=== PATIENT | male | born 1965 | race Two or more races ===

== ENCOUNTER → 2018-10-04 | Day surgery (SDC) | payer OTHER ==
[~2018-10-04] MED LIST: BUPIVACAINE HCL 0 ML ONE; LIDOCAINE 1% (LOCAL ANESTH.) PF 5ml SDV ONE; LIDOCAINE 1% HCL (LOCAL ANESTH.) INJ 20ML MDV ONE; SUCCINYLCHOLINE CHLORIDE 20 MG/ML 10ML VIAL IV ONE
[2018-10-04 06:15] VITALS: BP 118/72
== END | disposition home or self-care (01) ==
LOC: SUR 06:20
DX: Z01.818 Encounter for other preprocedural examination (principal); K43.2 Incisional hernia without obstruction or gangrene; E11.9 Type 2 diabetes mellitus without complications; I10 Essential (primary) hypertension; E78.5 Hyperlipidemia, unspecified
CPT/HCPCS: 71045; 82962; J0330; J2001; J3490

== ENCOUNTER 2018-11-22 06:11 | Inpatient (IN) | payer OTHER ==
[~2018-11-22] VITALS: Ht 177.8 cm; Wt 112.9 kg
[2018-11-22] MEDS ORDERED: HEPARIN SODIUM (PORCINE) 5000 UNITS/ML 1ML VIAL ONE (07:08)
[2018-11-22] MEDS ORDERED: ceFAZolin 1GM/50ML 100 ML IV ONE (07:10)
[2018-11-22] MEDS ORDERED: LIDOCAINE 1% HCL (LOCAL ANESTH.) INJ 20ML MDV ONE (07:12)
[2018-11-22] MEDS ORDERED: BUPIVACAINE HCL 50 ML ONE (07:12)
[2018-11-22] MEDS ORDERED: SUCCINYLCHOLINE CHLORIDE 20 MG/ML 10ML VIAL IV ONE (07:19)
[2018-11-22] MEDS ORDERED: MIDAZOLAM HCL 1MG/1ML-2 ML VIAL ONE (07:57)
[2018-11-22] MEDS ORDERED: LIDOCAINE 1% (LOCAL ANESTH.) PF 5ml SDV ONE (07:58)
[2018-11-22] MEDS ORDERED: METOCLOPRAMIDE HCL 5MG/ml INJ 2ml VIAL ONE (07:58)
[2018-11-22] MEDS ORDERED: ETOMIDATE (2MG/ML) 20ML VIAL IV ONE (07:59)
[2018-11-22] MEDS ORDERED: ROCURONIUM 10MG/ML 10ML VIAL IV ONE (07:59)
[2018-11-22] MEDS ORDERED: fentaNYL CITRATE 100 MCG/2 ML VL ONE (08:11)
[2018-11-22] MEDS ORDERED: ACCU-CHEK COMFORT CURVE STRIP VI ONE (08:30)
[2018-11-22] MEDS ORDERED: HYDROmorphone HCL 2 MG/ML VL IV PRN ×2 (08:30)
[2018-11-22] MEDS ORDERED: ONDANSETRON HCL 4 MG/2 ML VIAL IV PRN ×2 (08:30→11:00)
[2018-11-22] MEDS ORDERED: NALOXONE HCL 0.4 MG/ML VIAL IV PRN (08:30)
[2018-11-22] MEDS ORDERED: MEPERIDINE HCL (50 MG/ML) 1 ML VIAL ONE (08:35)
[2018-11-22] MEDS ORDERED: hydrALAZINE HCL 20 MG/ML VL ONE (08:44)
[2018-11-22] MEDS ORDERED: ESMOLOL HCL 10 ML IV ONE (09:41)
[2018-11-22] MEDS ORDERED: NEOSTIGMINE 1 MG/ML INJ (10mg/10ML VIAL) ONE (10:49)
[2018-11-22] MEDS ORDERED: GLYCOPYRROLATE 0.2 MG/ML 1ML VIAL ONE (10:49)
[2018-11-22] MEDS ORDERED: OXYCODONE W/ ACETAMINOPHEN 5/325MG TABLET PO PRN ×2 (11:00)
[2018-11-22] MEDS ORDERED: DEXTROSE (50%) 50ML SYRG IV PRN (11:00)
[2018-11-22] MEDS ORDERED: HYDROmorphone HCL 2 MG/ML VL ONE (11:24)
--- NOTE | 2018-11-22 11:36 | NUR ---
RECEIVED REPORT FROM SORAYA SANTOS OF PACU
--- NOTE | 2018-11-22 11:45 | NUR ---
MS admit from [facility] KRISTOPHER COURTNEY admitted to [facility] after SBAR received. Patient oriented to Hamida Kwon, primary RN, unit, room, bed, and unit policies regarding patient care and visiting hours. Patient weighed by bedscale and encouraged to call if they need something. All questions and concerns addressed, patient verbalized understanding. Note: RECEIVED PT VIA BED, PT IS AWAKE AND ALERT, NOTED POST OP DRESSING ON ABDOMEN CLEAN DRY AND INTACT, WITH ALE DRAIN DRAINING SANGUINEOUS FLUID, WILL CONTINUE TO MONITOR.
[2018-11-22 12:00] VITALS: BP 138/71
[2018-11-22] MEDS: InsuLIN REG 1unit/0.01ml Soln (100units/ml) SC SCH ×2 (12:26→17:12)
[2018-11-22] MEDS: ACCU-CHEK COMFORT CURVE STRIP VI SCH ×3 (12:26→21:19)
[2018-11-22] MEDS ORDERED: ATOR20TA PO (15:20)
[2018-11-22] MEDS ORDERED: METF-370 PO (15:20)
[2018-11-22] MEDS: MORPHINE SULF INJ 2 MG/ML SYRINGE 1ML IV PRN (16:56)
[2018-11-22 17:09] VITALS: BP 137/85
[2018-11-22] MEDS: SODIUM CHLORIDE 0.9% 1,000 ML IV SCH (17:53)
[2018-11-22] MEDS: metFORMIN HYDROCHLORIDE 500 MG TAB PO SCH (17:54)
--- NOTE | 2018-11-22 18:05 | NUR ---
ALE DRAIN TOTAL OUTPUT 70 ML SANGUINEOUS FLUID.
--- NOTE | 2018-11-22 18:09 | NUR ---
PT IS UP ON CHAIR,TOLERATED IT WELL.
--- NOTE | 2018-11-22 19:45 | NUR ---
Opening Shift Note Assumed care of patient, awake and alert. No S/S of distress/SOB or pain. Bed in lowest locked position, side rails up x2, call light within reach, guards at bedside. Dressing noted to medial abdomen, minimal drainage noted and circled. ALE drain noted to bulb suction with minimal sanguinous dressing inside. Incentive spirometer at bedside, instructed patient on use, patient verbalized understanding. Instructed on POC and to call for assist PRN, will continue to monitor for changes Q1hr and PRN.
[2018-11-22 22:00] VITALS: BP 135/79
[2018-11-22] MEDS ORDERED: InsuLIN REG 1unit/0.01ml Soln (100units/ml) SC SCH (22:00)
[2018-11-22] MEDS ORDERED: ATORVASTATIN 20 MG TAB PO SCH (22:00)
[2018-11-23] MEDS: SODIUM CHLORIDE 0.9% 1,000 ML IV SCH (00:20)
[2018-11-23] MEDS: MORPHINE SULF INJ 2 MG/ML SYRINGE 1ML IV PRN (01:31)
[2018-11-23 05:00] VITALS: BP 146/84
[2018-11-23 05:35] LABS: Basophils # (auto) 0 uL; Basophils % (auto) 0.5 % (0.0-2.0); Eosinophils # (auto) 0 uL; Eosinophils % (auto) 0.1 % (0.0-7.0); Hematocrit 47.9 % (41.0-53.0); Lymphocytes # (auto) 1.8 uL; Lymphocytes % (auto) 20.2 % (10.0-50.0); Mean Corpuscular Hemoglobin 33.2 pg (28.0-32.0); Mean Corpuscular Hgb Conc. 35.4 g/dL (32.0-36.0); Mean Corpuscular Volume 93.6 fL (80.0-100.0); Monocytes # (auto) 0.8 uL; Monocytes % (auto) 8.8 % (0.0-12.0); Neutrophils # (auto) 6.2 uL; Neutrophils % (auto) 70.4 % (37.0-80.0); Nucleated Red Blood Cells % 0.1 %; Platelet Count (auto) 177 10^3/uL (140-450); Red Blood Cells 5.12 10^6/uL (4.5-5.90); Red Cell Distribution Width 13.3 % (11.8-14.3); White Blood Cell 8.8 10^3/uL (4.4-10.8)
[2018-11-23 06:01] LABS: BUN/Creatinine Ratio 12.8; Calcium 8.5 mg/dL (8.5-10.1)
[2018-11-23] MEDS: ACCU-CHEK COMFORT CURVE STRIP VI SCH ×2 (06:56→11:58)
[2018-11-23] MEDS: InsuLIN REG 1unit/0.01ml Soln (100units/ml) SC SCH ×2 (06:56→11:58)
--- NOTE | 2018-11-23 07:15 | NUR ---
Closing Note Patient lying in bed, awake and alert. No s/s of distress. 25 ml of sanguinous drainage removed from ALE drain, replaced to bulb suction. Bed in lowest locked position, side rails up x2, call light within reach, guards at bedside. Care endorsed to dayshift RN.
--- NOTE | 2018-11-23 07:45 | NUR ---
Opening Shift Note Assumed care of patient, awake and alert. No S/S of distress/SOB or pain. Instructed on POC and to call for assist PRN, will continue to monitor for changes Q1hr and PRN.
[2018-11-23 08:00] VITALS: BP 132/78
[2018-11-23 09:00] VITALS: BP 130/68
[2018-11-23] MEDS ORDERED: LISINOPRIL 10 MG TAB PO SCH (10:00)
[2018-11-23] MEDS ORDERED: ENOXAPARIN SOD 40 MG/0.4 ML SYRINGE SC SCH (10:00)
[2018-11-23] MEDS: metFORMIN HYDROCHLORIDE 500 MG TAB PO SCH (10:03)
[2018-11-23 11:35] VITALS: BP 130/68
[2018-11-23 12:45] VITALS: BP 131/87
--- NOTE | 2018-11-23 13:20 | NUR ---
Discharge instructions given as ordered. Paperwork given to guards. All questions and concerns addressed. Patient verbalized understanding. Medication reconciliation form completed and copy given to patient. IV removed with catheter intact, pressure dressing applied. Pt waiting in room awaiting transfer back to [facility]. no s/s of distress at this time
== END 2018-11-23 16:00 | DRG 355 ==
LOC: SUR 06:11 → EEVIPCON 12:00 → EAST 12:00
PROC: 3E0T3BZ Introduction of Anesthetic Agent into Peripheral Nerves and Plexi, Percutaneous Approach (ICD-10-PCS; 2018-11-22)
PROC: 0JB80ZZ Excision of Abdomen Subcutaneous Tissue and Fascia, Open Approach (ICD-10-PCS; 2018-11-22)
PROC: 0WUF0JZ Supplement Abdominal Wall with Synthetic Substitute, Open Approach (ICD-10-PCS; principal; 2018-11-22 07:52)
PROC: 0JX80ZZ Transfer Abdomen Subcutaneous Tissue and Fascia, Open Approach (ICD-10-PCS; 2018-11-22 07:52)
DX: K42.0 Umbilical hernia with obstruction, without gangrene (principal); E11.65 Type 2 diabetes mellitus with hyperglycemia; E66.9 Obesity, unspecified; K43.2 Incisional hernia without obstruction or gangrene; K66.0 Peritoneal adhesions (postprocedural) (postinfection); Z68.35 Body mass index [BMI] 35.0-35.9, adult
CPT/HCPCS: 36415; 80048; 82962; 85025; G0378; J0330; J0690; J1815; J2001; J2250; J2405; J3490